=== PATIENT | male | born 1995 | race Two or more races ===

== ENCOUNTER 2021-10-11 18:20 | Emergency (ER) | payer SELFPAY ==
[~2021-10-11] VITALS: Ht 175.3 cm; Wt 96.8 kg
[2021-10-11] MEDS ORDERED: KETOROLAC TROMETHAMINE 60 MG/2 ML VIAL IM ONE (19:30)
[2021-10-11 19:36] VITALS: BP 137/80
== END 2021-10-11 19:38 | disposition home or self-care (01) ==
LOC: EMS 18:22
DX: M54.50 Low back pain, unspecified (principal); V43.52XA Car driver injured in collision with other type car in traffic accident, initial encounter; Y93.89 Activity, other specified; Y92.488 Other paved roadways as the place of occurrence of the external cause; Y99.8 Other external cause status
CPT/HCPCS: 99283